=== PATIENT | female | born 2005 | race Caucasian/White ===

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

== ENCOUNTER 2023-04-08 15:55 | Emergency (ER) | payer OTHER, SELFPAY ==
--- NOTE | 2023-04-08 16:07 | ED_ITS ---
HPI - URI/Sore Throat <Lissa Driver PA-C - Last Filed: 04/08/23 16:29> General Chief Complaint: Upper Respiratory Symptoms Stated Complaint: possible strep/sore throat Time Seen by Provider: 04/08/23 16:07 History of Present Illness HPI Narrative: Patient is a 17-year-old female who is here with her mom who is also a patient who presents with sore throat, ear pain, itchy red eyes. This has been going on for 3 days. She denies any fever, cough, chest pain, nausea vomiting or urinary symptoms. She is not taken any medications. Related Data Previous Rx's Medication Instructions Recorded dexmethylphenidate 10 mg 10 mg PO QAM 30 days #30 caps 04/03/23 capsule,extended release [id number] Allergies Allergy/AdvReac Type Severity Reaction Status Date / Time Penicillins Allergy Intermediate Hives, Rash Verified 04/08/23 16:11 Review of Systems <Lissa Driver PA-C - Last Filed: 04/08/23 16:29> Review of Systems ROS Unobtainable: All systems reviewed & are unremarkable except as noted in HPI and below Patient History <Lissa Driver PA-C - Last Filed: 04/08/23 16:29> Medical History Poor weight gain (0-17) Underweight in childhood with BMI < 5th percentile Social History Smoking Status: Never smoker Smoking Status: Never smoker Substance Use Type: does not use Exam <Lissa Driver PA-C - Last Filed: 04/08/23 16:29> Narrative Exam Narrative: GENERAL: 17 year old patient appears stated age. Well-developed patient, in no distress. NEURO: AOx3. HEAD: Atraumatic. Normocephalic. EYES: Pupils equal round and reactive. Extraocular motions intact. No scleral icterus. No injection or drainage. ENT: Nose without bleeding or purulent drainage. TMs pearly peter. Throat with very mild erythema, no tonsillar hypertrophy or exudate. Airway patent. NECK: Trachea midline. Non tender RESPIRATORY: No distress EXTREMITIES: No edema or joint tenderness. SKIN: No rash or erythema of visible areas Initial Vital Signs Initial Vital Signs: Vital Signs Temperature 98.3 F 04/08/23 16:09 Pulse Rate 71 04/08/23 16:09 Respiratory Rate 17 04/08/23 16:09 Blood Pressure 105/63 04/08/23 16:09 Pulse Oximetry 100 04/08/23 16:09 Oxygen Delivery Method Room Air 04/08/23 16:09 <Justin Villegas DO - Last Filed: 04/08/23 16:35> Initial Vital Signs Initial Vital Signs: Vital Signs Temperature 98.3 F 04/08/23 16:09 Pulse Rate 71 04/08/23 16:09 Respiratory Rate 17 04/08/23 16:09 Blood Pressure 105/63 04/08/23 16:09 Pulse Oximetry 100 04/08/23 16:09 Oxygen Delivery Method Room Air 04/08/23 16:09 Course <Lissa Driver PA-C - Last Filed: 04/08/23 16:29> Orders Ordered: ED Orders 04/08/23 16:00 Strep Grp A by PCR Rapid Stat Vital Signs Vital signs: Vital Signs - 8 hr 04/08/23 16:09 Temperature 98.3 F Pulse Rate 71 Respiratory Rate 17 Blood Pressure 105/63 Pulse Oximetry 100 Oxygen Delivery Method Room Air <DO Lucian Loaiza Last Filed: 04/08/23 16:35> Orders Ordered: ED Orders 04/08/23 16:00 Strep Grp A by PCR Rapid Stat Vital Signs Vital signs: Vital Signs - 8 hr 04/08/23 16:09 Temperature 98.3 F Pulse Rate 71 Respiratory Rate 17 Blood Pressure 105/63 Pulse Oximetry 100 Oxygen Delivery Method Room Air MDM - URI/Sore Throat <Lissa Driver PA-C - Last Filed: 04/08/23 16:29> Lab Data Labs: Lab Results 04/08/23 Range/Units 16:00 Group A Strep (PCR) Negative (Negative) MDM Narrative Medical decision making narrative: Multiple etiologies for patient's symptoms considered including, but not limited to: Viral pharyngitis, strep pharyngitis, peritonsillar abscess. Rapid strep is negative and physical exam is very reassuring. Suspect viral pharyngitis. Advised supportive care. Patient's symptoms improved over duration of stay with above-stated therapies. Findings and discharge diagnosis discussed with patient/family followed by verbalization of understanding Return precautions discussed with patient/family whom verbalize understanding of diagnosis and plan <Justin Villegas DO - Last Filed: 04/08/23 16:35> Lab Data Labs: Lab Results 04/08/23 Range/Units 16:00 Group A Strep (PCR) Negative (Negative) Discharge Plan Departure Patient Disposition: Home Clinical Impression: Acute viral pharyngitis Instructions: DI for Viral Pharyngitis Activity Restrictions/Additional Instructions: *You have been diagnosed with viral pharyngitis. I would advise lots of fluids, rest, Tylenol or ibuprofen for pain, you can use [id number] cough drops or tea with honey to soothe her throat. Wash her hands and do not share utensils. I would anticipate you will be better in 4-7 days. *What to do: *Please continue to take your regular medications as directed. [ ] New medication prescriptions sent to your pharmacy: [ ] [ ] New medication written as a paper prescription [x] No new medications given *Please follow up with your primary care provider in 2-3 days, call for an appointment. Let them know you were seen in the Emergency Department and that we ask that you be seen in follow up. We will electronically transmit a record of today's note if your PCP is in our system *If you do not have a primary care provider please contact [facility] Resource line at [phone]. They will ask some questions about your medical history and help get you set up with a doctor in the community. *Return to Emergency Department if you should have any new, worsening or concerning symptoms, such as [fever greater than 101 F, shaking chills, worsening pain, persistent vomiting or other concerning symptoms]. Prescriptions: No Action dexmethylphenidate 10 mg capsule,ER biphasic 50-50 10 mg PO QAM 30 Days Qty: 30 0RF Referrals: Hector Mann MD [Primary Care Provider] - Stand Alone Forms: Patient Portal/API <Justin Villegas DO - Last Filed: 04/08/23 16:35> Cosign ED Attending Cosignature Attestation: Dr Villegas Co-Sign Statement: I was available for consultation during this patient's emergency department visit. This chart is signed by myself for administrative purposes only. I did not have direct contact with this patient during this visit. They were seen independently by the APC.
[2023-04-08 16:09] VITALS: BP 105/63; PULSE 71; RESP 17; TEMP 36.8; O2SAT 100; BMI 16.6
[2023-04-08 16:22] LABS: Strep Grp A by PCR Rapid Negative (Negative)
== END 2023-04-08 16:27 | disposition home or self-care (01) ==
PROVIDERS: Emergency Provider Physician Assistant; PCP Pediatrics
DX: J02.9 Acute pharyngitis, unspecified (principal)
CPT/HCPCS: 87651; 99281; 99282

== ENCOUNTER → 2023-10-30 11:22 | Outpatient (CLI) | payer OTHER, SELFPAY ==
[2023-10-30 19:21] LABS: Add Manual Diff / Slide Review NO; Basophils Absolute Auto 0 /uL (0-100); Basophils Percent Auto 0.3 % (0-2); Eosinophils Absolute Auto 100 /uL (0-450); Eosinophils Percent Auto 1.5 % (2-4); Hematocrit 39.6 % (36-46); Hemoglobin 13.3 g/dL (12.0-16.0); Lymphocytes Absolute Auto 1400 /uL (1100-4500); Lymphocytes Percent Auto 31.2 % (25-40); Mean Corpuscular HGB Conc 33.6 % (30-36); Mean Corpuscular Hemoglobin 30.7 PG (26-34); Mean Corpuscular Volume 91.4 fL (80-100); Monocytes Absolute Auto 400 /uL (0-900); Monocytes Percent Auto 8.3 % (3-14); Neutrophils Absolute Auto 2600 /uL (1500-7000); Neutrophils Percent Auto 58.7 % (50-75); Platelet Count 236 X10^3/uL (150-400); Red Blood Cell Count 4.33 X10^6/uL (4.0-5.2); Red Cell Distribution Width 13.1 % (11.6-14.8); White Blood Cell Count 4.5 X10^3/uL (4.5-11.0)
[2023-10-30 19:40] LABS: Alanine Aminotransferase 14 IU/L (<35); Albumin 4.4 g/dL (3.5-5.0); Albumin Globulin Ratio 1.4 (1.0-2.8); Alkaline Phosphatase 53 U/L (38-126); Aspartate Aminotransferase 22 IU/L (14-36); Bilirubin Total 0.4 mg/dL (0.2-1.3); Blood Urea Nitrogen 11 mg/dL (7-17); Calcium 9.5 mg/dL (8.4-10.2); Carbon Dioxide 25 mmol/L (22-32); Chloride 107 mmol/L (98-107); Estimated Glomerular Filt Rate > 60 mL/min (>60); Globulin 3.2 g/dL (1.7-4.1); Glucose 101 mg/dL (70-100); HEMOLYSIS < 15 (0-50); Potassium 4.6 mmol/L (3.4-5.1); Sodium 141 mmol/L (137-145); Total Protein 7.6 g/dL (6.3-8.2)
[2023-11-09 09:28] LABS: Alder IgE <0.10 kU/L (Class 0); Alternaria alternata IgE <0.10 kU/L (Class 0); Aspergillus fumigatus IgE <0.10 kU/L (Class 0); Box Elder IgE <0.10 kU/L (Class 0); Cat Dander IgE <0.10 kU/L (Class 0); Cladosporium herbarum IgE <0.10 kU/L (Class 0); Cockroach IgE <0.10 kU/L (Class 0); Cottonwood IgE 0.12 kU/L (Class 0/I); D farinae IgE <0.10 kU/L (Class 0); D pteronyssinus IgE <0.10 kU/L (Class 0); Dog Dander IgE <0.10 kU/L (Class 0); Elm Tree IgE <0.10 kU/L (Class 0); Immunoglobulin E 77 IU/mL (6-495); Mountain Cedar IgE 0.11 kU/L (Class 0/I); Mouse Urine Proteins IgE <0.10 kU/L (Class 0); Nettle IgE <0.10 kU/L (Class 0); Oak Tree IgE <0.10 kU/L (Class 0); Penicillium chrysogen IgE <0.10 kU/L (Class 0); Pigweed, Common IgE <0.10 kU/L (Class 0); Ragweed, Short <0.10 kU/L (Class 0); Sheep Sorrel IgE <0.10 kU/L (Class 0); Silver Birch IgE <0.10 kU/L (Class 0); Timothy Grass IgE <0.10 kU/L (Class 0); Walnut Allery IgE < 0.10 kU/L (Class 0); White ash IgE 0.11 kU/L (Class 0/I)
== END ==
PROVIDERS: PCP Pediatrics; Visit Provider Physician Assistant
DX: R10.9 Unspecified abdominal pain (principal); R09.81 Nasal congestion
CPT/HCPCS: 80053; 82785; 85025; 86003